=== PATIENT | female | born 1990 | race Caucasian/White ===

== ENCOUNTER → 2018-05-02 14:04 | Outpatient (CLI) | payer SELFPAY ==
[2018-05-02 14:25] LABS: Absolute Lymphocyte Count 2.14 X10^3/ul (0.83-4.51); Absolute Neutrophil Count 6.5 X10^3/uL (2.0-7.7); Basophil# 0.02 X10^3/uL; Basophil% 0.2 % (0-1); Eosinophils% 1.1 % (0-5); Hematocrit 37.4 % (37-47); Hemoglobin 13.1 g/dl (12.0-15.0); Lymphocyte # 2.14 X10^3/ul (4.0); Lymphocyte % 22.8 % (19-41); Mean Corpuscular Hgb 29.7 pg (27.0-32.0); Mean Corpuscular Volume 84.8 fL (81-99); Mean Platelet Vol. 9.9 fl (6.2-12.0); Monocyte# 0.62 X10^3/uL; Monocyte% 6.6 % (0-10); Neutrophil # 6.46 X10^3/uL (2.7-7.7); POSITIVE COUNT NO; POSITIVE DIFFERENTIAL NO; POSITIVE MORPHOLOGY NO; Platelet Count 274 K/mm3 (150-450); RBC Distribution Width CV 12.8 % (11.6-14.6); RBC Distribution Width SD 39.3 fl (35.1-43.9); Red Blood Count 4.41 M/mm3 (4.2-5.4); White Blood Count 9.4 K/mm3 (4.4-11.0)
[2018-05-02 14:44] LABS: Glucose Challenge Gest 1H 50g 117 mg/dL (70-140)
[2018-05-02 15:39] LABS: HIV - WCH Non-Reactive (Nonreactive); Rubella IgG 9.2 IU/mL
[2018-05-02 20:36] LABS: Chlamydia Trachomatis by PCR Negative (Negative); Neisserai gonorrhoeae by PCR Negative (Negative); Probe Check PASS; Sample Adequacy Control PASS; Specimen Processing Control PASS
[2018-05-03 10:56] LABS: HEPATITIS B SURFACE AG Negative (Negative)
[2018-05-05 10:39] LABS: HPV Reflexed? NOT INDICATED
[2018-05-06 01:58] LABS: Rapid Plasmin Reagin (RPR) NONREACTIVE (NONREACTIVE)
== END ==
PROVIDERS: Family Provider Nurse Practitioner Family; PCP Nurse Practitioner Family; Referring Provider Obstetrics & Gynecology; Visit Provider Obstetrics & Gynecology
DX: Z34.90 Encounter for supervision of normal pregnancy, unspecified, unspecified trimester (principal); Z12.4 Encounter for screening for malignant neoplasm of cervix
CPT/HCPCS: 36415; 82950; 85025; 86592; 86703; 86762; 86850; 86900; 87086; 87088; 87340; 87491; 87591; 87624; 88175; G0145

== ENCOUNTER → 2018-06-30 17:35 | Outpatient (CLI) | payer SELFPAY ==
[2018-06-30 13:52] VITALS: BMI 33.1
== END ==
PROVIDERS: Family Provider Nurse Practitioner Family; Referring Provider Nurse Practitioner Women's Health; Visit Provider Nurse Practitioner Women's Health
DX: Z34.90 Encounter for supervision of normal pregnancy, unspecified, unspecified trimester (principal)
CPT/HCPCS: 87086; 87088

== ENCOUNTER → 2018-07-27 14:08 | Outpatient (CLI) | payer SELFPAY ==
[2018-07-27 10:13] VITALS: BMI 33.1
[2018-07-27 14:59] LABS: Protein, Urine (Random) < 6.0 mg/dL (<11.9)
--- OUTSIDE RECORDS SUMMARY | 2018-09-28 14:41 | XMS RPT_ITS ---
:1990 Author Organization OHIP Support Name Relationship Address Phone AARON MEJIA Unavailable [phone] + [place] [phone] ROBERTO ANAND Unavailable Unavailable + [place] [address] UE Unavailable Unavailable Unavailable AARON MEJIA Unavailable [phone] + [place] [address] MEJIA ANAND Unavailable . + [place] [address] UE Unavailable Unavailable Unavailable AARON MEJIA Unavailable [phone] + [place] [address] MARBELLA MEJIANAS Unavailable [phone] + [place] [address] MEJIA, ANAND Unavailable Unavailable + UE Unavailable Unavailable Unavailable AARON MEJIA Unavailable [phone] + [place] [address] MEJIA, ANAND Unavailable . + ., [place] . UE Unavailable Unavailable Unavailable AARON MEJIA Unavailable [phone] + [place] [address] MEJIA, ANAND Unavailable . + ., [place] . UE Unavailable Unavailable Unavailable MARBELLA MEJIANAS Unavailable [phone] + [place] [address] ROBERTO ANAND Unavailable Unavailable + UE Unavailable Unavailable Unavailable . Unavailable Unavailable + [place] [address] AARON MEJIA Unavailable . + [place] [address] ROBERTO ANAND Unavailable . + [place] [address] . Unavailable Unavailable + [place] [address] AARON MEJIA Unavailable . + [place] [address] ANAND MEJIA Unavailable . + [place] [address] Care Team Providers Name Role Phone TIERNEY VALLEJO Attending Unavailable MARCANTHONY, VERNELL E Referring Unavailable MARCANTHONY, VERNELL E Primary Care Unavailable Jose Alfredo, Roxanna Attending Unavailable DOCTOR, OUT OF TOWN Referring Unavailable Jose Alfredo, Roxanna Attending Unavailable Courtney, Abbi Primary Care Unavailable [place], Roxanna Referring Unavailable Marcanthony, Vernell Attending Unavailable DOCTOR, OUT OF TOWN Referring Unavailable Marcanthony, Vernell Attending Unavailable DOCTOR, OUT OF TOWN Referring Unavailable Marcanthony, Vernell Attending Unavailable DOCTOR, OUT OF TOWN Referring Unavailable Marcanthony, Vernell Attending Unavailable Marcanthony, Vernell Referring Unavailable [place], Abbi Primary Care Unavailable Marcanthony, Vernell Attending Unavailable Marcanthony, Vernell Referring Unavailable Courtney, Abbi Primary Care Unavailable Marcanthony, Vernell Attending Unavailable DOCTOR, OUT OF TOWN Referring Unavailable PROBLEMS PROBLEMS DATE TYPE CONDITION / CODE ATTENDING STATUS SOURCE 07/27/2018 Unknown O16.9 - Unspecified Marcanthony, Active [place] maternal hypertension, [facility] unspecified trimester Hospital / O16.9(ICD-10) Repository 07/27/2018 Unknown Z34.80 - Encounter for Marcanthony, Active [place] supervision of other [facility] normal , Hospital unspecified trimester Repository / Z34.80(ICD-10) 07/27/2018 Unknown O34.219 - Maternal Marcanthony, Active [place] care for unspecified [facility] type scar from Hospital previous Repository delivery / O34.219(ICD-10) 07/27/2018 Unknown Z86.2 - Personal Marcanthony, Active [place] history of diseases of [facility] the blood and Hospital blood-forming organs Repository and certain disorders involving the immune mechanism / Z86.2(ICD-10) 07/27/2018 Unknown O99.89 - Other Marcanthony, Active [place] specified diseases and [facility] conditions Hospital complicating Repository , childbirth and the puerperium / O99.89(ICD-10) 07/27/2018 Unknown Z28.3 - Marcanthony, Active [place] Underimmunization [facility] status / Z28.3(ICD-10) Hospital Repository 07/27/2018 Unknown O23.41 - Unspecified Marcanthony, Active [place] infection of urinary [facility] tract in , Hospital first trimester / Repository O23.41(ICD-10) 07/27/2018 Unknown F41.9 - Anxiety Marcanthony, Active [place] disorder, unspecified [facility] / F41.9(ICD-10) Hospital Repository 07/27/2018 Unknown Z3A.20 - 20 weeks Marcanthony, Active [place] gestation of Vernell [facility] / Z3A.20(ICD-10) Hospital Repository 07/01/2018 Unknown Z34.90 - Encounter for [place], Active [place] supervision of normal [facility] , Hospital unspecified, Repository unspecified trimester / Z34.90(ICD-10) 06/30/2018 Unknown Z3A.17 - 17 weeks Jose Alfredo, Active [place] gestation of [facility] / Z3A.17(ICD-10) Hospital Repository 06/01/2018 Unknown Z3A.12 - 12 weeks Marcanthony, Active [place] gestation of Vernell [facility] / Z3A.12(ICD-10) Hospital Repository 05/02/2018 Unknown Z3A.08 - 8 weeks Marcanthony, Active [place] gestation of [facility] / Z3A.08(ICD-10) Hospital Repository PROCEDURES PROCEDURES No Procedure Records FoundRESULTS RESULTS PROTEIN+CREATININE Collected: Status: F Source: [place] PAGEURINE 07/27/2018 2:27 PM [facility] REPOSITORY TYPE CODE TESTS RESULT OUT OF RANGE REFERENCE UNITS LAB L501.1200 NO RANGE EST. mg/dL 13.30 Normal UR CREAT LAB L501.1930 <11.9 mg/dL < 6.0 Normal PROTEIN,UR. RAN. LAB L501.1940 0-200 mg/g CRE Test Normal not performed PROT:CRE RATIO Performed By: #### L501.0900 #### [facility] [address] [place], [address] BRIDGE ENGINEER OFFICE VISIT Observed: 07/27/2018 Status: F Source: [place] REPORT 10:46 AM [facility] REPOSITORY [facility] [address] [place] [address] OFFICE VISIT Date of Service: 07/27/18 MR#: [id number] Acct: [id number] Name: RAINA MEJIA Rep #: [id number] : 1990 Provider: Vernell Prado MD Age/Sex: 27/F Location: [facility] Status: Signed Intake Vital Signs07/27/18 Body Mass Index (BMI) 33.1 07/27/18 Height 5 ft 7 in 07/27/18 Weight: 216 lb 07/27/18 Body Mass Index (BMI) 33.8 07/27/18 Blood Pressure 140/72 H Intake Visit Reasons: OB Chief Complaint: est ob Chicken Fancier Required: No Is patient in pain?: No Allergies No Known Allergies Allergy (Verified 07/27/18 10:12) Medications fluvoxamine 100 mg tablet 100 mg PO QHS 11/11/17 [History Confirmed 07/27/18] vitamin #56-iron 35 mg and 5 mg-folic acid 1 mg-dha capsule 1 cap PO DAILY 05/02/18 [History Confirmed 07/27/18] nitrofurantoin monohydrate/macrocrystals 100 mg capsule 100 mg PO BID #14 cap 05/05/18 [Rx Confirmed 07/27/18] Last Menstral Period: 03/03/18 Zika: Zika virus screening: Negative : No PFSH PFSH Medical History Anxiety (Acute) Surgical History S/P (Resolved) Family History Grandmother Cancer Grandfather Heart disease Social History Smoking Status: Never smoker alcohol intake: never substance use type: does not use caffeine: Yes what type of physical activity do you participate in: walking frequency: 5-6 times per week seatbelt use: always do you feel safe at home: Yes additional social history: - [facility] [address] [employer] Patient is a stay 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 DateName GA/Weeks Outcome Route Bth WeighInfant GeLabor LgtAnesthesiDel LocatProvider FOB t n h a n HPI OB: Details: RAINA MEJIA is a 27 year old who presents for routine OB visit. OB Visit ELSY Calculator Estimated Delivery Date 12/08/18 Based on LMP (certain) 03/03/18 Current WG 20w 6d Number 1 Expected Delivery Route/Plan considering Specific Issue/Plans flu vaccine: declines tdap vaccine: [] rhogam: NA LARC form signed: [] labor support person: Aaron pain management: epidural cut cord/dad catch: : yes PP control planned: [] special requests: [] Initial Weight: 210 lb Date Weight BP Urine PrFHR FuHt Pres MoCTX DilationFetal StVisit NoProviderComments E ot v te GA G Effac lucose ed Visit Notes Visit Date: 07/27/18 no vb lof good fm no regular ctx Vernell Prado MD on 07/27/18 Visit Date: 06/30/18 No VB, LOF. Doing well Roxanna Veliz NP-Evon on 06/30/18 Visit Date: 06/01/18 no vb lof crmaping Vernell Prado MD on 06/01/18 ACOG First Trimester First Trimester: Discussed Diagnostics Diagnostics Labs Blood Type A POSITIVE 05/02/18 Antibody Screen NEGATIVE 05/02/18 Hct 37.4 % (37-47) 05/02/18 Hgb 13.1 g/dl (12.0-15.0) 05/02/18 Rubella IgG Antibody 9.2 IU/mL 05/02/18 RPR NONREACTIVE (NONREACTIVE) 05/02/18 Hep Bs Antigen Negative (Negative) 05/02/18 Chlam trachomat DNA PCR Negative (Negative) 05/02/18 N.gonorrhoeae DNA (PCR) Negative (Negative) 05/02/18 Glucose 1 Hr 50 gm 117 mg/dL (70-140) 05/02/18 Details: HIV: Urine Culture: Sequential Screen: NIPT Screen: Results [id number] Office Urine Glucose Negative Last Edit by Lorelei Sosa on 07/27/18 10:16 Office Urine Protein Negative Last Edit by Lorelei Sosa on 07/27/18 10:16 Assessment AND Plan Problems 1. History of hemorrhage Z86.2 uterine inversion 2. Urinary tract infection in mother during first trimester of O23.41 REPEAT URINE culture neg 3. Previous delivery affecting , antepartum O34.219 considering 4. Supervision of other normal , antepartum Z34.80 PRR ELSY 12/08/18 boy PC Denis Aaron 5. 20 weeks gestation of Z3A.20 genetic, carrier, and ntd screening declined. MFM Anatomy US normal. 6. Anxiety F41.9 fluvoxamine 7. Rubella non-immune status, antepartum O99.89; Z28.3 discussed rubella avoidance nd immunization Plan ACOG trimester education reviewed and updated. see problem list details for updated plan management information and see below for orders placed at this visit. [place] appropriate handout given. Orders Orders: Coding Level of Care Code OB Routine Diagnoses History of hemorrhage Z86.2 Urinary tract infection in mother during first trimester of O23.41 Trimester: first trimester Previous delivery affecting , antepartum O34.219 Supervision of other normal , antepartum Z34.80 Normal : other normal 20 weeks gestation of Z3A.20 Weeks of gestation: 20 weeks Anxiety F41.9 Rubella non-immune status, antepartum O99.89; Z28.3 07/27/18 1046 <Electronically signed by Vernell Prado MD> Date Vernell Prado MD Cosigner Signature: Date (if applicable) CC: Observed: 06/30/2018 Status: F Source: [place] TADEO, URINE 5:36 PM [facility] REPOSITORY Urine Culture ORGANISM 1: Mixed Gram Positive Organisms Randolph Count >100,000 MIX CULTURE Mixed contaminants. Submit a new specimen if indicated. Performed By: #### M100.0650 #### [facility] [address] [place], [address] BRIDGE ENGINEER OFFICE VISIT Observed: 06/30/2018 Status: F Source: [place] REPORT 1:51 PM [facility] REPOSITORY [facility] [address] [place] [address] OFFICE VISIT Date of Service: 06/30/18 MR#: [id number] Acct: [id number] Name: RAINA MEJIA Rep #: [id number] : 1990 Provider: FREDDY Veliz Age/Sex: 27/F Location: [facility] Status: Signed Intake Vital Signs06/30/18 Body Mass Index (BMI) 33.1 06/30/18 Height 5 ft 7 in 06/30/18 Weight: 212 lb 4 oz 06/30/18 Body Mass Index (BMI) 33.2 06/30/18 Blood Pressure 122/84 H Intake Visit Reasons: OB Chief Complaint: Est OB Accompanied by: Self Is patient in pain?: No Allergies No Known Allergies Allergy (Verified 06/30/18 13:33) Medications fluvoxamine 100 mg tablet 100 mg PO QHS 11/11/17 [History Confirmed 06/30/18] vitamin #56-iron 35 mg and 5 mg-folic acid 1 mg-dha capsule 1 cap PO DAILY 05/02/18 [History Confirmed 06/30/18] nitrofurantoin monohydrate/macrocrystals 100 mg capsule 100 mg PO BID #14 cap 05/05/18 [Rx Confirmed 06/30/18] Last Menstral Period: 03/03/18 Zika: Zika virus screening: Negative : No PFSH PFSH Medical History Anxiety (Acute) Surgical History S/P (Resolved) Family History Grandmother Cancer Grandfather Heart disease Social History Smoking Status: Never smoker alcohol intake: never substance use type: does not use caffeine: Yes what type of physical activity do you participate in: walking frequency: 5-6 times per week seatbelt use: always do you feel safe at home: Yes additional [facility]: [facility] is a stay 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 DateName GA/Weeks Outcome Route Bth WeighInfant GeLabor LgtAnesthesiDel LocatProvider FOB t n h a n HPI OB: Details: RAINA MEJIA is a 27 year old who presents for routine OB visit. OB Visit ELSY Calculator Estimated Delivery Date 12/08/18 Based on LMP (certain) 03/03/18 Current WG 17w 0d Number 1 Expected Delivery Route/Plan considering Specific Issue/Plans flu vaccine: declines tdap vaccine: [] rhogam: NA LARC form signed: [] labor support person: Aaron pain management: epidural cut cord/dad catch: : yes PP control planned: [] special requests: [] Initial Weight: Not Recorded Date Weight BP Urine PFHR FuHt Pres MCTX DilatioFetal SVisit NProvideComment rot ov n t ote r s EGA Ef Gluco faced se 06/01/1211 lb 110/76 155 no vb l 8 8 oz of crma 12 ping w 6d Visit Notes Visit Date: 06/30/18 No VB, LOF. Doing well Roxanna Veliz NP-Evon on 06/30/18 Visit Date: 06/01/18 no vb lof crmaping Vernell Prado MD on 06/01/18 ACOG First Trimester First Trimester: Discussed Diagnostics Diagnostics Labs Blood Type A POSITIVE 05/02/18 Antibody Screen NEGATIVE 05/02/18 Hct 37.4 % (37-47) 05/02/18 Hgb 13.1 g/dl (12.0-15.0) 05/02/18 Rubella IgG Antibody 9.2 IU/mL 05/02/18 RPR NONREACTIVE (NONREACTIVE) 05/02/18 Hep Bs Antigen Negative (Negative) 05/02/18 Chlam trachomat DNA PCR Negative (Negative) 05/02/18 N.gonorrhoeae DNA (PCR) Negative (Negative) 05/02/18 Glucose 1 Hr 50 gm 117 mg/dL (70-140) 05/02/18 Details: HIV: Urine Culture: Sequential Screen: NIPT Screen: Assessment AND Plan Problems 1. Supervision of other normal , antepartum Z34.80 PRR ELSY 12/08/18 PC Denis Aaron 2. Previous delivery affecting , antepartum O34.219 considering 3. 17 weeks gestation of Z3A.17 genetic, carrier, and ntd screening declined. 4. History of hemorrhage Z86.2 uterine inversion 5. Rubella non-immune status, antepartum O99.89; Z28.3 discussed rubella avoidance nd immunization 6. Urinary tract infection in mother during first trimester of O23.41 NEEDS REPEAT URINE CULUTRE AT NEXT VISIT 7. Anxiety F41.9 fluvoxamine Plan Orders placed: none Anatomy US with MFM scheduled Reviewed of labor precautions, movement/kick counts ACOG trimester education reviewed and updated See problem list details for updated plan of care Gestational age appropriate handout given RTO: 4 weeks Coding Level of Care Code OB Routine Diagnoses Supervision of other normal , antepartum Z34.80 Normal : other normal Previous delivery affecting , antepartum O34.219 17 weeks gestation of Z3A.17 Weeks of gestation: 17 weeks History of hemorrhage Z86.2 Rubella non-immune status, antepartum O99.89; Z28.3 Urinary tract infection in mother during first trimester of O23.41 Trimester: first trimester Anxiety F41.9 06/30/18 1351 <Electronically signed by Roxanna SELLERS> Date Roxanna SELLERS Cosigner Signature: Date (if applicable) CC: BRIDGE ENGINEER OFFICE VISIT Observed: 06/01/2018 Status: F Source: [place] REPORT 10:53 AM [facility] Women's [facility] [address] [place] [address] OFFICE VISIT Date of Service: 06/01/18 MR#: [id number] Acct: [id number] Name: RAINA MEJIA Rep #: [id number] : 1990 Provider: Vernell Prado MD Age/Sex: 27/F Location[facility] Status: Signed Intake Vital Signs06/01/18 Height 5 ft 7 in 06/01/18 Weight: 211 lb 8 oz 06/01/18 Body Mass Index (BMI) 33.1 06/01/18 Blood Pressure 110/76 Intake Visit Reasons: 12 week ob Chief Complaint: est ob Chicken Fancier Required: No Is patient in pain?: No Allergies No Known Allergies Allergy (Verified 06/01/18 10:32) Medications fluvoxamine 100 mg tablet 100 mg PO QHS 11/11/17 [History Confirmed 06/01/18] vitamin #56-iron 35 mg and 5 mg-folic acid 1 mg-dha capsule 1 cap PO DAILY 05/02/18 [History Confirmed 06/01/18] nitrofurantoin monohydrate/macrocrystals 100 mg capsule 100 mg PO BID #14 cap 05/05/18 [Rx Confirmed 06/01/18] Last Menstral Period: 03/03/18 Zika: Zika virus screening: Negative : No PFSH PFSH Medical History Anxiety (Acute) Surgical History S/P (Resolved) Family History Grandmother Cancer Grandfather Heart disease Social History Smoking Status: Never smoker alcohol intake: never substance use type: does not use caffeine: Yes what type of physical activity do you participate in: walking frequency: 5-6 times per week seatbelt use: always do you feel safe at home: Yes additional social history: - [facility] [address] [employer] Patient is a stay 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 DateName GA/Weeks Outcome Route Bth WeighInfant GeLabor LgtAnesthesiDel LocatProvider FOB t n h a n HPI 12 week ob: Details: RAINA MEJIA is a 27 year old who presents for routine OB visit. OB Visit ELSY Calculator Estimated Delivery Date 12/08/18 Based on LMP (certain) 03/03/18 Current WG 12w 6d Number 1 Expected Delivery Route/Plan considering Initial Weight: Not Recorded Date Weight BP Urine PrFHR FuHt Pres MoCTX DilationFetal StVisit NoProviderComments E ot v te GA G Effac lucose ed Visit Notes Visit Date: 06/01/18 no vb lof crmaping Vernell Prado MD on 06/01/18 ACOG First Trimester First Trimester: Discussed Diagnostics Diagnostics Labs Blood Type A POSITIVE 05/02/18 Antibody Screen NEGATIVE 05/02/18 Hct 37.4 % (37-47) 05/02/18 Hgb 13.1 g/dl (12.0-15.0) 05/02/18 Rubella IgG Antibody 9.2 IU/mL 05/02/18 RPR NONREACTIVE (NONREACTIVE) 05/02/18 Hep Bs Antigen Negative (Negative) 05/02/18 Chlam trachomat DNA PCR Negative (Negative) 05/02/18 N.gonorrhoeae DNA (PCR) Negative (Negative) 05/02/18 Glucose 1 Hr 50 gm 117 mg/dL (70-140) 05/02/18 Details: HIV: Urine Culture: Sequential Screen: NIPT Screen: Assessment AND Plan Problems 1. History of hemorrhage Z86.2 uterine inversion 2. Previous delivery affecting , antepartum O34.219 considering 3. Supervision of other normal , antepartum Z34.80 PRR ELSY 12/08/18 MALCOM Barrios Aaron 4. 12 weeks gestation of Z3A.12 genetic, carrier, and ntd screening declined. 5. Anxiety F41.9 fluvoxamine 6. Urinary tract infection in mother during first trimester of O23.41 needs repeat culture at next visit 7. Rubella non-immune status, antepartum O99.89; Z28.3 discussed rubella avoidance nd immunization Plan ACOG trimester education reviewed and updated. see problem list details for updated plan management information and see below for orders placed at this visit. [place] appropriate handout given. Orders Orders: Coding Level of Care Code OB Routine Diagnoses History of hemorrhage Z86.2 Previous delivery affecting , antepartum O34.219 Supervision of other normal , antepartum Z34.80 Normal : other normal 12 weeks gestation of Z3A.12 Weeks of gestation: 12 weeks Anxiety F41.9 Urinary tract infection in mother during first trimester of O23.41 Trimester: first trimester Rubella non-immune status, antepartum O99.89; Z28.3 06/01/18 1053 <Electronically signed by Vernell Prado MD> Date Vernell Prado MD Cosigner Signature: Date (if applicable) CC: CBC W/DIFF, AUTOMATED Collected: 05/02/2018 Status: F Source: [place] 2:12 PM [facility] REPOSITORY TYPE CODE TESTS RESULT OUT OF RANGE REFERENCE UNITS LAB L100.1000 4.4-11.0 K/mm3 Normal WBC 9.4 LAB L100.1200 4.2-5.4 M/mm3 Normal RBC 4.41 LAB L100.1300 12.0-15.0 g/dl Normal HGB 13.1 LAB L100.1400 37-47 % Normal HCT 37.4 LAB L100.1500 81-99 fL Normal MCV 84.8 LAB L100.1600 27.0-32.0 pg Normal MCH 29.7 LAB L100.1700 32-36 g/gl Normal MCHC 35.0 LAB L100.1810 11.6-14.6 % Normal RDW CV 12.8 LAB L100.1820 35.1-43.9 fl Normal RDW SD 39.3 LAB L100.1900 150-450 K/mm3 Normal PLT 274 LAB L100.2000 6.2-12.0 fl Normal MPV 9.9 LAB L100.2100 47-70 % Normal NEUT% 69.0 LAB L100.2200 19-41 % Normal LY% 22.8 LAB L100.2300 0-10 % Normal MONO% 6.6 LAB L100.2400 0-5 % Normal EO% 1.1 LAB L100.2500 0-1 % Normal BASO% 0.2 LAB L100.2550 0.0-0.9 % Normal IM GRAN % 0.300 Result Comment: IG% - Immature Granulocytes (promyelocytes, myelocytes and metamyelocytes) > 1% indicates that a LEFT SHIFT is Present. LAB L100.2620 2.0-7.7 X10 3/uL Normal Absolute Neut 6.5 LAB L100.2720 0.83-4.51 X10 3/ul Normal Absolute Lymph 2.14 Performed By: #### L100.0100 #### [facility] [address] [place], [address] GLUCOSE CHALLENGE GEST Collected: 05/02/2018 Status: F Source: [place] 1H 50G 2:12 PM [facility] REPOSITORY TYPE CODE TESTS RESULT OUT OF RANGE REFERENCE UNITS LAB L501.0250 70-140 mg/dL Normal GLU GEST 117 50g 1H Performed By: #### L501.0250 #### [facility] [address] [place], [address] TYPE AND SCREEN Collected: 05/02/2018 Status: F Source: [place] 2:12 PM [facility] REPOSITORY Order Comment: Reason for Type AND Screen/Red Cells: TYPE CODE TESTS RESULT OUT OF RANGE REFERENCE UNITS LAB B10.0800 A Normal BLOOD TYPE GEL POSITIVE LAB B100.4000 Normal Antibody NEGATIVE Screen Performed By: #### B101.7450 #### [facility] [address] [place], [address] RUBELLA IGG Collected: 05/02/2018 Status: F Source: [place] 2:12 PM [facility] REPOSITORY TYPE CODE TESTS RESULT OUT OF RANGE REFERENCE UNITS LAB L509.4000 IU/mL Normal Rubella IgG 9.2 Result Comment: Antibody results Interpretation of Immune Status < 5 IU/ml Presumed Non-immune 5 - < 10 IU/ml Equivocal > or = 10 IU/ml Presumed Immune Performed By: #### L509.4000, L3890.6005 #### [facility] [address] [place], [address] HIV - [facility] Collected: 05/02/2018 Status: F Source: [place] 2:12 PM [facility] REPOSITORY TYPE CODE TESTS RESULT OUT OF RANGE REFERENCE UNITS LAB L3890.6005 Nonreactive Normal HIV - [facility] Non-Reactive Performed By: #### L509.4000, L3890.6005 #### [facility] [address] [place], [address] HEPATITIS B SURFACE Collected: 05/02/2018 Status: F Source: [place] AG 2:12 PM [facility] REPOSITORY TYPE CODE TESTS RESULT OUT OF RANGE REFERENCE UNITS LAB L3100.0400 Negative Normal HB Negative SURF AG Result Comment: Performed at: - [facility] [id number] [employer] Operator: Esequiel Franco PhD, Phone: [phone] Performed By: #### L3100.0390 #### [facility] (refer to report for specific site) refer to report for address and phone number RAPID PLASMIN REAGIN Collected: 05/02/2018 Status: F Source: [place] (RPR) 2:12 PM [facility] REPOSITORY TYPE CODE TESTS RESULT OUT OF REFERENCE UNITS RANGE LAB L700.5000 NONREACTIVE NONREACTIVE Normal RPR Performed By: #### L700.5000 #### [facility] [address] [place], [place], [address] BRIDGE ENGINEER OFFICE VISIT Observed: 05/02/2018 Status: F Source: [place] REPORT 1:56 PM [facility] REPOSITORY [facility] [address] [place] [address] OFFICE VISIT Date of Service: 05/02/18 MR#: [id number] Acct: [id number] Name: RAINA MEJIA Rep #: [id number] : 1990 Provider: Vernell Prado MD Age/Sex: 27/F Location: [facility] Status: Signed Intake Vital Signs05/02/18 Height 5 ft 7 in 05/02/18 Weight: 209 lb 05/02/18 Body Mass Index (BMI) 32.7 05/02/18 Blood Pressure 122/80 H Intake Visit Reasons: NOB-LMP-03/03/18 Chief Complaint: NEW OB Chicken Fancier Required: No Is patient in pain?: No Allergies No Known Allergies Allergy (Verified 05/02/18 13:07) Medications fluvoxamine 100 mg tablet 100 mg PO QHS 11/11/17 [History Confirmed 11/11/17] vitamin #56-iron 35 mg and 5 mg-folic acid 1 mg-dha capsule 1 cap PO DAILY 05/02/18 [History Confirmed 05/02/18] Last Menstral Period: 03/03/18 Zika: Zika virus screening: Negative : No PFSH PFSH Medical History Anxiety (Acute) Surgical History S/P (Resolved) Family History Grandmother Cancer Grandfather Heart disease Social History Smoking Status: Never smoker alcohol intake: never substance use type: does not use caffeine: Yes what type of physical activity do you participate in: walking frequency: 5-6 times per week seatbelt use: always do you feel safe at home: Yes additional social history: - [facility] Patient is a stay 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 DateName GA/Weeks Outcome Route Bth WeighInfant GeLabor LgtAnesthesiDel LocatProvider FOB t n h a n HPI NOB-LMP-03/03/18: Details: RAINA MEJIA is a 27 year old who presents for New OB visit. OB Visit Comments: Limited transvaginal ultrasound performed to confirm EDC and viability. CRL is 1.8 mm measuring 8w5d which is consistent with LMP. FHTs 170. no gross abnormalities noted. Menstrual History Last Menstral Period: 03/03/18 Reported LMP: definite Normal amount/duration: Yes On hormonal BC at conception: No Antepartum Record Genetic Screening: Congenital Heart Defect: Other, Neural Tube Defect: Other, Hemoglobinopathy Or Carrier: Other, Cystic Fibrosis: Other, Chromosome Abnormality: Other, Edmund-Sachs: Other, Hemophilia: Other, Intellectual Disability/Autism: Other, Recurrent Loss/Stillbirth: Other, Other Structural Defect: Other, Other Genetic Disease: Other, Maternal Metabolic Disorder: Other Infection History: Live with someone with TB or Exposed to TB: No, Patient or Partner has history of Genital Herpes: No, Rash or Viral illness since last mentrual period: No, Prior GBS-Infected child: No, History of STD: No, HIV Infection: No, History of Hepatitis: No, Recent travel outside of [place]: No, Concern for Hep exposure: No, Varicella immune: Yes Medical History Medical History: Positive: Psychiatric (prozac), History of blood transfusions (with hemorrhage PP), Seat Maker surgery, Operations/hospitalizations, Negative: Diabetes, Hypertension, Heart disease, Auto-immune disorder, Kidney disease/UTI, Neurologic/epilepsy, Depression/ depression, Hepatitis/liver disease, Varicosities/phlebitis, Thyroid dysfunction, Trauma/domestic violence, D (Rh) Sensitized, Pulmonary (e.g.,TB,Asthma), Seasonal allergies, Drug/latex allergies/reactions, Breast, Anesthetic complications, History of abnormal pap, Uterine anomaly/hay, Infertility, Anti-retroviral treatment, Relevant family history, Other ACOG First Trimester First Trimester: Discussed ROS Const Denies fever(s), Reports system reviewed and no additional complaints, except as docu, Reports fatigue Eyes Reports system reviewed and no additional complaints, except as docu ENT Reports system reviewed and no additional complaints, except as docu Card Denies chest pain, Denies shortness of breath Resp Reports system reviewed and no additional complaints, except as docu, Denies shortness of breath, Denies cough GI Reports nausea, Denies abdominal pain Reports system reviewed and no additional complaints, except as docu Musc Reports system reviewed and no additional complaints, except as docu Skin/Breast Reports system reviewed and no additional complaints, except as docu Neuro Yes system reviewed and no additional complaints, except as docu Psych Reports system reviewed and no additional complaints, except as docu Endo Reports fatigue, Reports system reviewed and no additional complaints, except as docu Exam Const General: healthy appearing, comfortable, no acute distress Orientation: alert [facility] Head: normal to inspection, atraumatic, normocephalic Ears: external ears normal, hearing grossly normal bilaterally Nose: nares normal, external nose normal Mouth: oral mucosae normal Teeth and gingiva: dentition normal Eyes General: appearance normal, both eyes and all related structures Neck Neck: no lymphadenopathy, supple, normal visual inspection Thyroid: thyroid normal Chest Chest palpation AND inspection: normal inspection of the chest Breast inspection: normal inspection of the breasts, normal inspection of the axillae Breast palpation: normal palpation of the breasts, normal palpation of the axillae Resp Effort AND Inspection: normal respiratory effort GI Inspection: normal to inspection Palpation: soft, no hepatosplenomegaly General: bladder normal to palpation External Female Exam: normal external appearance, normal appearance of the urethra Urethra: normal appearance of the urethra Speculum Exam - Vagina: normal appearance of the vagina, normal vaginal discharge Speculum Exam - Cervix: normal appearance of the cervix Bimanual Exam- Vagina AND Uterus: bladder normal to palpation, normal bimanual exam, uterus non-tender, other Bimanual Exam- Adnexa, other: adnexae non-tender Skin General: no rashes or lesions noted Neuro Motor: muscle tone normal throughout, no movement abnormalities noted Extrem General: normal to inspection, full ROM Assessment AND Plan Problems 1. History of hemorrhage Z86.2 uterine inversion 2. Previous delivery affecting , antepartum O34.219 considering 3. 8 weeks gestation of Z3A.08 genetic, carrier, and ntd screening declined. 4. Supervision of other normal , antepartum Z34.80 ELSY PC Denis Aaron 5. Anxiety F41.9 fluvoxamine Plan Patient oriented to practice and discussed care expectations and screenings. ACOG book offered to patient. Discussed routine and specially indicated labs if needed- patient consents to testing. see problem list details for plan information. Optional screening including carrier screenings, neural tube defect screening, sequential screening, and NIPT screening offered to patient and patient chose: declines Orders Orders: Supplemental Info ACOG book given and patient encouraged to read about nutrition, exercise, weight gain, and food avoidance in . Coding Level of Care Code OB Routine Diagnoses History of hemorrhage Z86.2 Previous delivery affecting , antepartum O34.219 8 weeks gestation of Z3A.08 Weeks of gestation: 8 weeks Supervision of other normal , antepartum Z34.80 Normal : other normal Anxiety F41.9 05/02/18 1356 <Electronically signed by Vernell Prado MD> Date Vernell Prado MD Cosigner Signature: Date (if applicable) CC: CT/NG [facility] BY PCR Collected: 05/02/2018 Status: F Source: [place] 1:00 PM [facility] REPOSITORY TYPE CODE TESTS RESULT OUT OF RANGE REFERENCE UNITS LAB L8200.2100 Negative Normal Chlam Negative Trac PCR LAB L8200.2200 Negative Normal NG by Negative PCR Performed By: #### L8200.2000 #### [facility] [address] [place], [address] Observed: 05/02/2018 Status: F Source: [place] CULTURE, URINE 1:00 PM [facility] REPOSITORY Urine Culture Gram positive diane suggestive of a diptheroid. Below infection level. ORGANISM 1: Gram positive diane Randolph Count <1000 Performed By: #### M100.0650 #### [facility] [address] [place], [address] PAP I-G W/RFX Collected: 05/02/2018 Status: F Source: [place] HRHPV-APTIMA 1:00 PM [facility] REPOSITORY Order Comment: CYTOLOGY INFORMATION: - CLINICAL INFORMATION: NEW OB - DATE LMP/MENOPAUSE: - COLLECTION VIAL: Thin Prep Vial - CAN WORKER SOURCE: CERVICAL - COLLECTION TECHNIQUE: BRUSH/SPATULA Specimen Comment: [id number] Specimen Comment: Source.............Labia/Vulva Specimen Comment: Dates / Results....NEW OB Specimen Comment: Other..............Other Specimen Comment: No. of containers..01 ThinPrep Vial TYPE CODE TESTS RESULT OUT OF RANGE REFERENCE UNITS LAB L7400.0800 . Normal DIAGN Comment Result Comment: NEGATIVE FOR INTRAEPITHELIAL LESION AND MALIGNANCY. LAB L7400.0900 . Normal ADEQ Comment Result Comment: Satisfactory for evaluation. No endocervical component is identified. LAB L7400.1400 . Normal PERFORM Comment Result Comment: Yamini Hernandez, Shake Loader (ASCP) LAB L7400.2575 . Normal TEST METHOD Comment Result Comment: This liquid based ThinPrep(R) pap test was screened with the use of an image guided system. LAB L7400.2600 . Normal . COMM LAB L7400.2700 . Normal PAPSMR Comment Result Comment: The Pap smear is a screening test designed to aid in the detection of premalignant and malignant conditions of the uterine cervix. It is not a diagnostic procedure and should not be used as the sole means of detecting cervical cancer. Both false-positive and false-negative reports do occur. LAB L7400.2800 . Normal HPV RFLX Comment Result Comment: The HPV DNA reflex criteria were not met with this specimen result therefore, no HPV testing was performed. Performed at: [facility] [id number] [employer] [place] [employer] Operator: Angelica Cano MD, Phone: [phone] Performed By: #### L7400.0353 #### [facility] (refer to report for specific site) refer to report for address and phone number BRIDGE ENGINEER OFFICE VISIT Observed: 11/14/2017 Status: F Source: [place] REPORT 5:30 PM [facility] [address] [place] [address] OFFICE VISIT Date of Service: 11/11/17 MR#: [id number] Acct: [id number] Name: RAINA MEJIA Rep #: [id number] : 1990 Provider: Vernell Prado MD Age/Sex: 27/F Location: [facility] Status: Signed Intake Vital Signs11/11/17 Height 5 ft 3 in 11/11/17 Weight: 202 lb 2 oz 11/11/17 Body Mass Index (BMI) 35.8 11/11/17 Blood Pressure 118/84 Intake Visit Reasons: Fertility Discussion, Previous High Risk Preg Chicken Fancier Required: No Is patient in pain?: No Allergies No Known Allergies Allergy (Verified 11/11/17 11:34) Medications fluvoxamine 100 mg tablet 100 mg PO QHS 11/11/17 [History Confirmed 11/11/17] Is last menstrual period known: Yes Last Menstral Period: 10/30/17 Post menopausal: No Patient : No : No [facility] Medical History Anxiety (Acute) Surgical History S/P (Resolved) Family History Grandmother Cancer Grandfather Heart disease Social History Smoking Status: Never smoker alcohol intake: never substance use type: does not use caffeine: Yes what type of physical activity do you participate in: walking frequency: 5-6 times per week seatbelt use: always do you feel safe at home: Yes additional social history: - [facility]- [facility] Patient is a stay at home mom HPI Fertility Discussion, Previous High Risk Preg: Details: RAINA MEJIA is a 27 year old who presents for preconception counseling. she has a hisotry of previous c sectin for failture to progress and then had a hemorrhage with possibly a placenta acreata. she delivered at [place]. she is wnating to know her risk for recurrence and if it's safe to become . Female Reproductive History Last Menstral Period: 10/30/17 Cycle Length: 21-35 Questions: Metorrhagia: No, Sexually active: Yes, Dyspareunia: No Pregancy History 1 Elective abortions Hx Para 1 Spontaneous abortions Past Pregnancies Del. DateName GA/Weeks Outcome Route Bth WeighInfant GeLabor LgtAnesthesiDel LocatProvider FOB t n h a n ROS Const Constitutional: Denies poor appetite, headache(s), fever(s), increased appetite, weight gain, weight loss or fatigue ENT ENT: Denies dry mouth GI GI: Reports as per HPI; denies vomiting, nausea, abdominal pain or constipation : Reports as per HPI; denies difficulty urinating, blood in urine, pelvic pain, urinary frequency, urinary incontinence, urinary hesitancy, urinary urgency, vaginal discharge, vaginal dryness, vaginal odor, vaginal itching, other, painful urination or nipple discharge Skin Skin/Breast: Denies hair loss, change in hair, dry skin, breast pain, breast skin changes, breast lump or nipple discharge Exam Const General: cooperative, healthy appearing, comfortable, no acute distress, well developed Nutritional Appearance: average body habitus Orientation: alert HEN[facility] Head: normal to inspection, normocephalic Ears: hearing grossly normal bilaterally, external ears normal Nose: external nose normal, nares normal Face and sinus: normal facial exam Neck Neck: normal visual inspection, trachea midline, no lymphadenopathy Thyroid: thyroid normal Resp Effort AND Inspection: normal respiratory effort Musc Other: gross motor intact no deficits, full bilateral strength Skin General: no rashes or lesions noted Neuro Motor: muscle tone normal throughout Assessment AND Plan Problems 1. Pre-conception counseling Z Plan counseling provided for preconception. fu with next . obtain delivery records Coding Level of Care Code Off vis,new,level 3 Diagnoses Pre-conception counseling Z31.11/14/17 1730 <Electronically signed by Vernell Prado MD> Date Vernell Prado MD Cosigner Signature: Date (if applicable) CC: ALLERGIES ALLERGIES DATE TYPE / CODE NAME / CODE REACTION SEVERITY SOURCE 07/27/2018 Drug No Known Unknown [facility] Allergy/4160 Allergies/F00 Hospital 87925(SNOMED [id number](RXNOR Repository CT) M) ENCOUNTERS ENCOUNTERS ADMIT/DISCHARGE ACCOUNT ADMITTING ENCOUNTER LOCATION SOURCE NUMBER CLASS 07/27/2018 [id number] [facility] ing:LABSPEC Repository 07/27/2018/07/27/19 [id number] Ambulatory BMSBuilding:[facility] [place] [facility] Repository 07/18/2018 [id number] Ambulatory Building:[facility] Repository 06/30/2018 [id number] Ambulatory [facility] ing:LABSPEC Repository 06/30/2018/06/30/20 [id number] Ambulatory BMSBuilding:[facility] [place] [address] [facility] Repository 06/01/2018/06/01/20 [id number] Ambulatory BMSBuilding:[facility] [place] [facility] Repository 05/02/2018 [id number] Ambulatory [facility] ing:PAVLAB Repository 05/02/2018/05/02/20 [id number] Ambulatory BMSBuilding:[facility] [place] [facility] Repository 11/11/2017/11/12/19 [id number] Ambulatory BMSBuilding:[facility] [place] [facility] Repository PAYERS PAYERS ENCOUNTER GUARANTOR PAYER SUBSCRIBER SOURCE 07/27/2018 RAINA [facility] NOT GIVENUNK [place] [id number] CR Insurance:SELF PAY [place] [address]Tel: [phone] Number: Effective Repository [phone] () Date:2018-07-27 07/27/2018 RAINA [facility] NOT GIVENUNK [place] [id number] CR Insurance:SELF PAY [place] [address]Tel: [phone]) Number: Effective Repository [phone] () Date:2018-07-27 06/30/2018 RAINA [facility] NOT GIVENUNK [place] [id number] CR Insurance:SELF PAY [place] [address]Tel: [phone] Number: Effective Repository [phone] () Date:2018-06-30 06/30/2018 RAINA S Primary NOT GIVENUNK [place] [id number] CR Insurance:SELF PAY [place] [address]Tel: [phone]) Number: Effective Repository [phone] () Date:2018-06-30 06/01/2018 RAINA [facility] NOT GIVENUNK [place] [id number] CR Insurance:SELF PAY [address] [address]Knr: [phone] Number: Effective Repository [phone] (HP) Date:2018-06-01 05/02/2018 RAINA S Primary NOT GIVENUNK [place] [id number] CR Insurance:SELF PAY [place] [address]Tel: [phone]) Number: Effective Repository [phone] () Date:2018-05-02 05/02/2018 RAINA Primary NOT GIVENUNK [place] [id number] Insurance:SELF PAY [address] Number: Effective Repository [phone]: [phone] Date:2018-05-02 [phone] (HP) 11/11/2017 RAINA Primary NOT GIVENGRACE [id number] Insurance:SELF PAY [address] Number: Effective Repository [phone]: [phone]) Date:2017-11-11 [phone] (HP)
== END ==
PROVIDERS: Family Provider Nurse Practitioner Family; Referring Provider Obstetrics & Gynecology; Visit Provider Obstetrics & Gynecology
DX: O16.9 Unspecified maternal hypertension, unspecified trimester (principal)
CPT/HCPCS: 82570; 84156

== ENCOUNTER → 2018-08-24 14:17 | Outpatient (CLI) | payer SELFPAY ==
[2018-08-24 13:16] VITALS: BMI 34.0
[2018-08-24 14:44] LABS: Absolute Lymphocyte Count 1.83 X10^3/ul (0.83-4.51); Absolute Neutrophil Count 6.5 X10^3/uL (2.0-7.7); Basophil# 0.01 X10^3/uL; Basophil% 0.1 % (0-1); Eosinophil# 0.08 X10^3/uL; Eosinophils% 0.9 % (0-5); Hematocrit 37.1 % (37-47); Lymphocyte # 1.83 X10^3/ul (4.0); Lymphocyte % 20.2 % (19-41); Mean Corp Hgb Conc 32.3 g/gl (32-36); Mean Corpuscular Hgb 28.8 pg (27.0-32.0); Mean Corpuscular Volume 89.2 fL (81-99); Mean Platelet Vol. 9.5 fl (6.2-12.0); Monocyte# 0.55 X10^3/uL; Monocyte% 6.1 % (0-10); Neutrophil # 6.48 X10^3/uL (2.7-7.7); Neutrophil % 71.3 % (47-70); Platelet Count 230 K/mm3 (150-450); RBC Distribution Width CV 13.6 % (11.6-14.6); RBC Distribution Width SD 44.3 fl (35.1-43.9); Red Blood Count 4.16 M/mm3 (4.2-5.4); White Blood Count 9.1 K/mm3 (4.4-11.0)
[2018-08-24 14:45] LABS: POSITIVE COUNT NO; POSITIVE DIFFERENTIAL NO; POSITIVE MORPHOLOGY NO
[2018-08-24 15:14] LABS: ALB/GLOB Ratio 0.7 RATIO (0.9-2.4); AST(SGOT) 13 U/L (15-37); Alanine Aminotransfer ALT/SGPT 19 U/L (13-56); Albumin, Serum 3.1 g/dL (3.2-5.0); Alkaline Phosphatase 48 U/L (45-117); Anion Gap 9 (5-15); BUN 8 mg/dL (7-18); BUN/Creat Ratio 15.9 RATIO (10-20); Calcium,Total 8.8 mg/dL (8.5-10.1); Chloride 104 mmol/L (98-107); EST Glomerular Filtration Rate 157 mL/min (>60); Est Glom Filt Rate - Afr Amer 190 mL/min (>60); Globulin 4.3 g/dL (2.2-4.2); Glucose 89 mg/dL (74-106); Potassium 3.9 mmol/L (3.5-5.1); Protein, Total 7.4 g/dL (6.4-8.2); Sodium Level 137 mmol/L (136-145)
== END ==
PROVIDERS: Visit Provider Obstetrics & Gynecology
DX: O16.9 Unspecified maternal hypertension, unspecified trimester (principal); Z3A.00 Weeks of gestation of pregnancy not specified
CPT/HCPCS: 36415; 80053; 85025

== ENCOUNTER → 2018-09-14 15:35 | Outpatient (CLI) | payer SELFPAY ==
[2018-09-14 15:14] VITALS: BMI 34.0
[2018-09-14 16:48] LABS: Absolute Lymphocyte Count 1.58 X10^3/ul (0.83-4.51); Absolute Neutrophil Count 4.5 X10^3/uL (2.0-7.7); Basophil# 0.01 X10^3/uL; Basophil% 0.2 % (0-1); Eosinophil# 0.02 X10^3/uL; Eosinophils% 0.3 % (0-5); Lymphocyte # 1.58 X10^3/ul (4.0); Lymphocyte % 23.7 % (19-41); Mean Corp Hgb Conc 33.3 g/gl (32-36); Mean Corpuscular Hgb 29.7 pg (27.0-32.0); Mean Corpuscular Volume 89.1 fL (81-99); Mean Platelet Vol. 9.9 fl (6.2-12.0); Monocyte% 7.5 % (0-10); Neutrophil # 4.47 X10^3/uL (2.7-7.7); Neutrophil % 67.1 % (47-70); POSITIVE COUNT NO; POSITIVE DIFFERENTIAL NO; POSITIVE MORPHOLOGY NO; Platelet Count 211 K/mm3 (150-450); RBC Distribution Width SD 41.7 fl (35.1-43.9); Red Blood Count 4.04 M/mm3 (4.2-5.4); White Blood Count 6.7 K/mm3 (4.4-11.0)
[2018-09-14 17:03] LABS: Glucose Challenge Gest 1H 50g 112 mg/dL (70-140)
== END ==
PROVIDERS: Referring Provider Nurse Practitioner Women's Health; Visit Provider Nurse Practitioner Women's Health
DX: Z34.90 Encounter for supervision of normal pregnancy, unspecified, unspecified trimester (principal)
CPT/HCPCS: 36415; 82950; 85025; 86850; 86900

== ENCOUNTER → 2018-10-17 13:53 | Outpatient (CLI) | payer SELFPAY ==
[2018-09-29 16:42] VITALS: BMI 34.0
--- NOTE | 2018-10-17 13:55 | US_ITS ---
STUDY: OBSTETRICAL ULTRASOUND - BIOPHYSICAL PROFILE REASON FOR EXAM: Female, 27 years old. Assess well-being. growth. LMP: 03/03/2018 PRIOR ULTRASOUND: None. TECHNIQUE: Transabdominal ultrasound evaluation was performed. FINDINGS: Single live intrauterine gestation. Cephalic presentation. cardiac rate 156 bpm. Amniotic fluid index 13.3 cm. Maximum vertical pocket 3.1 cm. Placenta grade 1, anterior, not low-lying. Cervical length 4.6 cm, closed. The maternal adnexa are not characterized. Biometrics: Biparietal diameter 8.2 cm, 33 week 1 day Head circumference 31.1 cm, 34 week 6 day Abdominal circumference 29.8 cm, 32 weeks 6 day Femur length 6.6 cm, 33 weeks 6 day Cephalic index 78%. Femur length/abdominal circumference 23%. Femur length/biparietal diameter 80%. Head circumference/abdominal circumference 1.08. Age by LMP: 32 weeks, 4 days. ELSY by LMP: 12/08/2018. age by current US: 33 weeks, 5 days. ELSY by current US: 11/30/2018. Estimated weight 2164 g, +/- 316 g, 64% Limited anatomic images were obtained for assessment of dates, viability and positioning only. In the limited survey no gross anatomic abnormality was observed. BIOPHYSICAL PROFILE: Breathing Movements (FBM): 2 Gross Body Movements (GBM): 2 Tone (FT): 2 Amniotic Fluid Volume (AFV): 2 TOTAL SCORE: US/Biophysical Profile IMPRESSION: Normal biophysical profile of 02/09. Biometrics as above. No acute or maternal abnormality is evident. Electronically Signed: Edmund Barrett MD at 15:51 EDT Tel , Service support ,
--- NOTE | 2018-10-17 13:55 | US_ITS ---
STUDY: SECOND AND THIRD TRIMESTER OBSTETRICAL ULTRASOUND - LIMITED REASON FOR EXAM: Female, 27 years old. Assess well-being. growth. LMP: 03/03/2018 PRIOR ULTRASOUND: None. TECHNIQUE: Transabdominal ultrasound evaluation was performed. FINDINGS: Single live intrauterine gestation. Cephalic presentation. cardiac rate 156 bpm. Amniotic fluid index 13.3 cm. Maximum vertical pocket 3.1 cm. Placenta grade 1, anterior, not low-lying. Cervical length 4.6 cm, closed. The maternal adnexa are not characterized. Biometrics: Biparietal diameter 8.2 cm, 33 week 1 day Head circumference 31.1 cm, 34 week 6 day Abdominal circumference 29.8 cm, 32 weeks 6 day Femur length 6.6 cm, 33 weeks 6 day Cephalic index 78%. Femur length/abdominal circumference 23%. Femur length/biparietal diameter 80%. Head circumference/abdominal circumference 1.08. Age by LMP: 32 weeks, 4 days. ELSY by LMP: 12/08/2018. age by current US: 33 weeks, 5 days. ELSY by current US: 11/30/2018. Estimated weight 2164 g, +/- 316 g, 64% Limited anatomic images were obtained for assessment of dates, viability and positioning only. In the limited survey no gross anatomic abnormality was observed. BIOPHYSICAL PROFILE: Breathing Movements (FBM): 2 Gross Body Movements (GBM): 2 Tone (FT): 2 Amniotic Fluid Volume (AFV): 2 TOTAL SCORE: US/OB Limited With Biometrics IMPRESSION: Normal biophysical profile of 02/09. Biometrics as above. No acute or maternal abnormality is evident. Electronically Signed: Edmund Barrett MD at 15:52 EDT Tel , Service support ,
== END ==
PROVIDERS: Referring Provider Obstetrics & Gynecology; Visit Provider Obstetrics & Gynecology
DX: O16.9 Unspecified maternal hypertension, unspecified trimester (principal); Z3A.00 Weeks of gestation of pregnancy not specified
CPT/HCPCS: 76816; 76818

== ENCOUNTER → 2018-10-26 09:41 | Outpatient (CLI) | payer SELFPAY ==
[2018-09-29 16:42] VITALS: BMI 34.0
[2018-10-21 14:57] VITALS: BMI 34.6
--- NOTE | 2018-10-26 09:50 | US_ITS ---
STUDY: OBSTETRICAL ULTRASOUND - BIOPHYSICAL PROFILE REASON FOR EXAM: Female, 27 years old. well-being. PRIOR ULTRASOUND: 10/17/2018 TECHNIQUE: Transabdominal ultrasound evaluation was performed. FINDINGS: There is a single intrauterine fetus. The fetus is in a cephalic presentation. There is demonstrated cardiac activity with a heart rate of 165 bpm. There is a normal amniotic fluid volume. The amniotic fluid index (LEONEL) is 13.7 cm. The placenta is anterior in location and is not low lying. The cervix measures 4.7 cm. BIOPHYSICAL PROFILE: Breathing Movements (FBM): 2 Gross Body Movements (GBM): 2 Tone (FT): 2 Amniotic Fluid Volume (AFV): 2 TOTAL SCORE: 8 / 8 US/Biophysical Profile IMPRESSION: Normal biophysical profile of 02/09. Electronically Signed: Rosas Lopez, at 11:54 EDT Tel , Service support ,
== END ==
PROVIDERS: Referring Provider Obstetrics & Gynecology; Visit Provider Obstetrics & Gynecology
DX: O16.9 Unspecified maternal hypertension, unspecified trimester (principal); Z3A.00 Weeks of gestation of pregnancy not specified
CPT/HCPCS: 76818

== ENCOUNTER → 2018-10-31 09:39 | Outpatient (CLI) | payer SELFPAY ==
[2018-09-29 16:42] VITALS: BMI 34.0
[2018-10-26 11:24] VITALS: BMI 34.6
--- NOTE | 2018-10-31 09:42 | US_ITS ---
STUDY: SECOND AND THIRD TRIMESTER OBSTETRICAL ULTRASOUND - LIMITED REASON FOR EXAM: Female, 27 years old. growth. Follow-up. PRIOR ULTRASOUND: 10/26/2018 and 10/17/2018. TECHNIQUE: Transabdominal ultrasound evaluation was performed. FINDINGS: There is a single intrauterine fetus. The fetus is in a cephalic presentation. There is demonstrated cardiac activity with a heart rate of 170 bpm. There is a normal amniotic fluid volume. The largest amniotic fluid pocket measures 3.8 cm. The amniotic fluid index (LEONEL) is 14.9 cm. The placenta is anterior in location and is not low lying. There are Grade 2 placental changes. The cervix measures 3.5 cm in length. BIOMETRY: BPD: 8.6 cm: 34 weeks, 5 days HC: 31.7 cm: 35 weeks, 5 days AC: 30.4 cm: 34 weeks, 3 days FL: 6.7 cm: 34 weeks, 5 days Age by LMP: 34 weeks, 4 days. ELSY by LMP: 12/08/2018. age by prior US: 35 weeks, 5 days. ELSY by prior US: 11/30/2018. age by current US: 35 weeks, 0 days. ELSY by current US: 12/05/2018. Estimated weight: 2464 grams, +/- 360 grams, 45 percentile. US/OB Limited With Biometrics IMPRESSION: Single live intrauterine gestation at approximately 35 weeks and 0 days based on the current ultrasound. Electronically Signed: Rosas Jessica, at 18:51 EDT Tel , Service support ,
--- NOTE | 2018-10-31 09:49 | US_ITS ---
STUDY: OBSTETRICAL ULTRASOUND - BIOPHYSICAL PROFILE REASON FOR EXAM: Female, 27 years old. well-being PRIOR ULTRASOUND: 10/26/2018 and 10/17/2018 TECHNIQUE: Transabdominal ultrasound evaluation was performed. FINDINGS: There is a single intrauterine fetus. The fetus is in a cephalic presentation. There is demonstrated cardiac activity with a heart rate of 170 bpm. There is a normal amniotic fluid volume. The amniotic fluid index (LEONEL) is 14.9 cm. The placenta is anterior in location and is not low lying. BIOPHYSICAL PROFILE: Breathing Movements (FBM): 2 Gross Body Movements (GBM): 2 Tone (FT): 2 Amniotic Fluid Volume (AFV): 2 TOTAL SCORE: 8 / 8 US/Biophysical Prof W/O Non Stres IMPRESSION: Normal biophysical profile of 02/09. Electronically Signed: Rosas Lopez, at 18:53 EDT Tel , Service support ,
[2018-10-31 12:05] LABS: Absolute Lymphocyte Count 1.48 X10^3/ul (0.83-4.51); Basophil# 0.01 X10^3/uL; Basophil% 0.1 % (0-1); Eosinophil# 0.03 X10^3/uL; Eosinophils% 0.4 % (0-5); Hematocrit 35.5 % (37-47); Hemoglobin 11.7 g/dl (12.0-15.0); Lymphocyte # 1.48 X10^3/ul (4.0); Lymphocyte % 17.6 % (19-41); Mean Corpuscular Hgb 28.3 pg (27.0-32.0); Mean Corpuscular Volume 85.7 fL (81-99); Mean Platelet Vol. 9.7 fl (6.2-12.0); Monocyte# 0.75 X10^3/uL; Monocyte% 8.9 % (0-10); Neutrophil % 71.6 % (47-70); Platelet Count 199 K/mm3 (150-450); RBC Distribution Width CV 13.2 % (11.6-14.6); RBC Distribution Width SD 40.5 fl (35.1-43.9); Red Blood Count 4.14 M/mm3 (4.2-5.4); White Blood Count 8.4 K/mm3 (4.4-11.0)
[2018-10-31 12:06] LABS: POSITIVE COUNT NO; POSITIVE DIFFERENTIAL NO; POSITIVE MORPHOLOGY NO
[2018-10-31 12:26] LABS: Protein, Urine (Random) < 6.0 mg/dL (<11.9)
[2018-10-31 12:37] LABS: ALB/GLOB Ratio 0.6 RATIO (0.9-2.4); AST(SGOT) 13 U/L (15-37); Alanine Aminotransfer ALT/SGPT 18 U/L (13-56); Albumin, Serum 2.9 g/dL (3.2-5.0); Alkaline Phosphatase 76 U/L (45-117); Anion Gap 6 (5-15); BUN 8 mg/dL (7-18); BUN/Creat Ratio 15.2 RATIO (10-20); Chloride 107 mmol/L (98-107); Creatinine, Serum 0.53 mg/dL (0.55-1.02); EST Glomerular Filtration Rate 149 mL/min (>60); Est Glom Filt Rate - Afr Amer 181 mL/min (>60); Globulin 4.5 g/dL (2.2-4.2); Glucose 84 mg/dL (74-106); Potassium 3.9 mmol/L (3.5-5.1); Protein, Total 7.4 g/dL (6.4-8.2); Sodium Level 138 mmol/L (136-145)
== END ==
PROVIDERS: Nurse Practitioner Women's Health; Referring Provider Obstetrics & Gynecology; Visit Provider Obstetrics & Gynecology
DX: O16.9 Unspecified maternal hypertension, unspecified trimester (principal); Z3A.00 Weeks of gestation of pregnancy not specified
CPT/HCPCS: 36415; 76816; 76819; 80053; 82570; 84156; 85025

== ENCOUNTER → 2018-11-07 10:02 | Outpatient (CLI) | payer SELFPAY ==
[2018-09-29 16:42] VITALS: BMI 34.0
[2018-10-31 11:21] VITALS: BMI 34.6
--- NOTE | 2018-11-07 10:21 | US_ITS ---
STUDY: OBSTETRICAL ULTRASOUND - BIOPHYSICAL PROFILE REASON FOR EXAM: Female, 27 years old. well-being. LMP: March 03, 2018. PRIOR ULTRASOUND: Limited OB ultrasound and biophysical profile October 31, 2018 TECHNIQUE: Transabdominal TECHNICAL QUALITY: Adequate. FINDINGS: There is a single intrauterine fetus. The fetus is in a cephalic presentation. There is demonstrated cardiac activity with a heart rate of 135 bpm. There is a normal amniotic fluid volume. The largest amniotic fluid pocket measures 4.4 x 4.6 cm. The amniotic fluid index (LEONEL) is 11.6 cm. The placenta is anterior in location and is not low lying. There are Grade 2 placental changes. The cervix is closed. Cervical length is 3.7 cm. Age by LMP: 35 weeks, 4 days. ELSY by LMP: December 08, 2018. age by prior US: 36 weeks, 0 days. ELSY by prior US: December 05, 2018. BIOPHYSICAL PROFILE: Breathing Movements (FBM): 2 Gross Body Movements (GBM): 2 Tone (FT): 2 Amniotic Fluid Volume (AFV): 2 TOTAL SCORE: 8 / 8 US/Biophysical Profile IMPRESSION: Normal biophysical profile of 8/8. Electronically Signed: Jamari Hart MD at 16:15 EDT , Service support ,
== END ==
PROVIDERS: Referring Provider Obstetrics & Gynecology; Visit Provider Obstetrics & Gynecology
DX: O16.9 Unspecified maternal hypertension, unspecified trimester (principal); Z3A.00 Weeks of gestation of pregnancy not specified
CPT/HCPCS: 76818

== ENCOUNTER 2018-11-07 11:40 | Outpatient (CLI) | payer SELFPAY ==
[2018-11-07 11:03] VITALS: BMI 34.6
[2018-11-07 11:58] VITALS: BMI 34.8
--- NOTE | 2018-11-08 03:38 | OB.TRI.PN_ITS ---
Progress Notes Date of Service: 11/07/18 Progress Note: Patient seen secondary to tachycardia in the office, heart rate tracing at a baseline of 180s in the office today. She had a normal growth ultrasound and 8 out of 8 BPP today also heart tones 150s moderate variability reactive no decelerations category 1 tracing [place]: No regular contractions Assessment and plan tachycardia resolved with extended monitoring and fluids, suspect excessive movements. Blood pressures stable DC home kick counts
== END 2018-11-07 13:25 | disposition home or self-care (01) ==
LOC: WPOUT 11:50 → WP 11:50
PROVIDERS: Referring Provider Obstetrics & Gynecology; Visit Provider Obstetrics & Gynecology
DX: O76 Abnormality in fetal heart rate and rhythm complicating labor and delivery (principal); Z3A.00 Weeks of gestation of pregnancy not specified
CPT/HCPCS: 59025; 59050; 99218; G0378

== ENCOUNTER → 2018-11-14 10:09 | Outpatient (CLI) | payer SELFPAY ==
[2018-09-29 16:42] VITALS: BMI 34.0
[2018-11-07 11:58] VITALS: BMI 34.8
--- NOTE | 2018-11-14 10:14 | US_ITS ---
STUDY: SECOND AND THIRD TRIMESTER OBSTETRICAL ULTRASOUND - LIMITED REASON FOR EXAM: Female, 28 years old. Routine survey. LMP: March 03, 2018. PRIOR ULTRASOUND: Comparison is made with prior examination dated November 07, 2018 and October 31, 2018. TECHNIQUE: Transabdominal TECHNICAL QUALITY: Adequate. FINDINGS: There is a single intrauterine fetus. The fetus is in a cephalic presentation. There is demonstrated cardiac activity with a heart rate of 172 bpm. There is a normal amniotic fluid volume. The largest amniotic fluid pocket measures 3.2 cm x 2.9 cm. The amniotic fluid index (LEONEL) is 9.8 cm. The placenta is anterior in location and is not low lying. There are Grade 3 placental changes. The cervix measures 2.3 cm in length. BIOMETRY: BPD: 9.3 cm: 37 weeks, 6 days HC: 33.3 cm: 38 weeks, 0 days AC: 34.1 cm: 38 weeks, 0 days FL: 7.3 cm: 37 weeks, 2 days Age by LMP: 36 weeks, 4 days. ELSY by LMP: December 08, 2018. age by prior US: 37 weeks, 5 days. ELSY by prior US: November 30, 2018. age by current US: 37 weeks, 6 days. ELSY by current US: November 29, 2018. Estimated weight: 3306 grams, +/- 483 grams, 84 percentile. US/OB Limited With Biometrics IMPRESSION: Single live intrauterine gestation with a mean gestational age of 37 weeks and 5 days. The measurements obtained today fall within the normal expected range. Electronically Signed: Scottie Ventura, at 15:31 EDT , Service support ,
--- NOTE | 2018-11-14 10:24 | US_ITS ---
STUDY: OBSTETRICAL ULTRASOUND - BIOPHYSICAL PROFILE REASON FOR EXAM: Female, 28 years old. well being. History of hypertension. LMP: March 03, 2018. PRIOR ULTRASOUND: Comparison is made with prior study dated November 07, 2018. TECHNIQUE: Transabdominal TECHNICAL QUALITY: Adequate. FINDINGS: There is a single intrauterine fetus. The fetus is in a cephalic presentation. There is demonstrated cardiac activity with a heart rate of 176 bpm. There is a normal amniotic fluid volume. The largest amniotic fluid pocket measures 5.3 cm x 3.1 cm. The amniotic fluid index (LEONEL) is 9.9 cm. The placenta is anterior in location and is not low lying. There are Grade 3 placental changes. The cervix measures 3.4 cm. Age by LMP: 36 weeks, 4 days. ELSY by LMP: December 08, 2018. age by prior US: 37 weeks, 6 days. ELSY by prior US: November 29, 2018. BIOPHYSICAL PROFILE: Breathing Movements (FBM): 2 Gross Body Movements (GBM): 2 Tone (FT): 2 Amniotic Fluid Volume (AFV): 2 TOTAL SCORE: 8 / 8 US/Biophysical Profile IMPRESSION: Normal biophysical profile of 8/8. Electronically Signed: Scottie Ventura, at 14:41 EDT , Service support ,
== END ==
PROVIDERS: Referring Provider Obstetrics & Gynecology; Visit Provider Obstetrics & Gynecology
DX: O16.3 Unspecified maternal hypertension, third trimester (principal); Z3A.36 36 weeks gestation of pregnancy
CPT/HCPCS: 76816; 76818; 87081

== ENCOUNTER 2018-11-24 09:30 | Inpatient (IN) | payer SELFPAY ==
[2018-09-29 16:42] VITALS: BMI 34.0
[2018-11-17 16:01] VITALS: BMI 35.4
[2018-11-24] VITALS (31 sets, daily range): BP systolic 105–131; BP diastolic 53–87; PULSE 86–112; RESP 14–20; TEMP 36.1–36.7; O2SAT 87–100; BMI 35.5
[2018-11-24] MEDS: Lactated Ringers 1,000 ML 999 ML IV (09:50)
--- NOTE | 2018-11-24 10:02 | HP.PCM_ITS ---
- Problem List (1) Hypertension affecting Status: Acute Qualifiers: Trimester: third trimester Qualified Code(s): O16.3 - Unspecified maternal hypertension, third trimester Comment: check home bps, labs sent. reviewed precautions; NST/BPP weekly([facility]) at 32 wks (2) UTI in Status: Acute Qualifiers: Trimester: third trimester Qualified Code(s): O23.43 - Unspecified infection of urinary tract in , third trimester Comment: repeat culture neg (3) Rubella non-immune status, antepartum Status: Acute Comment: discussed rubella avoidance nd immunization (4) History of hemorrhage Status: Acute Comment: uterine inversion (5) Status: Acute Qualifiers: Weeks of gestation: 36 weeks Qualified Code(s): Z3A.36 - 36 weeks gestation of Comment: genetic, carrier, and ntd screening declined. MFM Anatomy US normal. (6) Previous delivery affecting , antepartum Status: Acute Comment: considering - 55-70% likelihood of success, education given (7) Supervision of normal , antepartum Status: Acute Qualifiers: Normal : other normal Qualified Code(s): Z34.80 - Encounter for supervision of other normal , unspecified trimester Comment: PRR ELSY 12/08/18 mami Barrios Aaron (8) Anxiety Status: Acute Comment: fluvoxamine History Date of Admission: 11/24/18 Final ELSY: 12/08/18 Gestational age: 38 Weeks and 0 Days History of this : This is a 28 year-old, at 38 weeks gestational age presents for repeat low transverse . She has had a history of chronic hypertension well controlled and previous declining . Medical History: Medical History (Last Reviewed 11/17/18 @ 15:37 by India Prince) Anxiety (Acute) F41.9 fluvoxamine Surgical History: Surgical History (Last Reviewed 11/17/18 @ 15:37 by India Prince) S/P Z98.891 Allergies No Known Allergies Allergy (Verified 11/17/18 15:36) Home Medications: Home Medications fluvoxamine 100 mg tablet 100 mg PO QHS 11/11/17 vitamin #56-iron 35 mg and 5 mg-folic acid 1 mg-dha capsule 1 cap PO DAILY 05/02/18 Blood Pressure Test Kit [Blood Pressure Monitor Manual] 0 .ROUTE .MEDSUPPLY 11/07/18 Smoking Status: Never smoker Number of Fetus(es): 1 Heart Tracin History Past Pregnancies: Past Pregnancies Previous term section failure to progress uterine inversion with hemorrhage Expected Delivery Method: Scheduled Section Review of Systems Constitutional: Denies: Fever, Malaise Eyes: Denies: Blurred vision, Vision Change HEENT: Denies: Head Aches, Visual Changes Cardiovascular: Denies: Chest Pain, Palpitations Respiratory: Denies: Cough, Shortness of Breath, Wheezing Gastrointestinal: Denies: Abdominal Pain, Diarrhea, Nausea, Vomiting Genitourinary: Denies: Dysuria, Hematuria Musculoskeletal: Denies: Joint Pain, Muscle pain Skin: Denies: Lesions, Rash Neurological: Denies: Blurred vision, Focal weakness, Headaches Psychiatric: Denies: Anxiety, Depression Endocrine: Denies: Heat/ Cold Intolerance Hematologic/ Lymphatic: Denies: Easy Bruising, Easy Bleeding Physical Exam General: Alert, Cooperative, No apparent distress HEENT: Atraumatic, Normocephalic. Negative for: Thyromegaly, Lymphadenopathy Cardiovascular: Regular rate Lungs: Normal air movement Abdomen: Soft, Non Tender, Gravid Neurological: Deep Tendon Reflexes 2+/4 and Symmetrical, Neuro grossly intact. 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 Negative for: Vulvar lesions Estimated gestational size: Appropriate for gestational size Presentation: Cephalic Assessment/Plan All Active Problems (Last Reviewed 11/17/18 @ 15:37 by India Prince) Hypertension affecting (Acute) UTI in (Acute) Rubella non-immune status, antepartum (Acute) History of hemorrhage (Acute) (Acute) Previous delivery affecting , antepartum (Acute) Supervision of normal , antepartum (Acute) Anxiety (Acute) This is a 28 year-old, G 2P1 at 38 weeks gestational age presents for repeat low transverse secondary to chronic hypertension Chronic hypertension?continue medications uncomplicated Previous declines trial of labor plan repeat low transverse Previous hemorrhage and uterine inversion
[2018-11-24 10:10] LABS: Absolute Lymphocyte Count 1.93 X10^3/ul (0.83-4.51); Absolute Neutrophil Count 4.9 X10^3/uL (2.0-7.7); Basophil# 0.01 X10^3/uL; Basophil% 0.1 % (0-1); Eosinophil# 0.06 X10^3/uL; Eosinophils% 0.8 % (0-5); Hematocrit 32.8 % (37-47); Lymphocyte # 1.93 X10^3/ul (4.0); Lymphocyte % 25.2 % (19-41); Mean Corp Hgb Conc 33.5 g/gl (32-36); Mean Corpuscular Hgb 28.4 pg (27.0-32.0); Mean Corpuscular Volume 84.5 fL (81-99); Mean Platelet Vol. 9.9 fl (6.2-12.0); Monocyte# 0.73 X10^3/uL; Monocyte% 9.5 % (0-10); Neutrophil # 4.88 X10^3/uL (2.7-7.7); Neutrophil % 63.6 % (47-70); POSITIVE COUNT NO; POSITIVE DIFFERENTIAL NO; POSITIVE MORPHOLOGY NO; Platelet Count 203 K/mm3 (150-450); RBC Distribution Width CV 13.5 % (11.6-14.6); RBC Distribution Width SD 40.8 fl (35.1-43.9); Red Blood Count 3.88 M/mm3 (4.2-5.4); White Blood Count 7.7 K/mm3 (4.4-11.0)
[2018-11-24] MEDS: Lactated Ringers 1,000 ML 150 ML IV (11:05)
[2018-11-24] MEDS: Cefazolin 2 GM in 0.9% Normal Saline 100 ML IV (11:21)
[2018-11-24] MEDS: Sodium Citrate/Citric Acid 30 ML UDC PO (11:22)
[2018-11-24] MEDS: Oxytocin 30 units/NS 500 ml 30 UNITS/500 ML IV.SOLN 167 UNITS IV ×2 (13:15)
[2018-11-24] MEDS: Carboprost Tromethamine 250 MCG/ML Ampul IM (13:17)
--- NOTE | 2018-11-24 17:10 | NURSING ---
Pt encouraged to take deep breaths. pulse ox 87-92% o2 applied at [address] via nasal cannula. Dr Prado aware. new orders received
[2018-11-24 17:13] LABS: Hematocrit 29.4 % (37-47); Hemoglobin 9.7 g/dl (12.0-15.0); Mean Corpuscular Hgb 27.9 pg (27.0-32.0); Mean Corpuscular Volume 84.5 fL (81-99); Mean Platelet Vol. 9.7 fl (6.2-12.0); Platelet Count 189 K/mm3 (150-450); RBC Distribution Width CV 13.1 % (11.6-14.6); Red Blood Count 3.48 M/mm3 (4.2-5.4); White Blood Count 13.5 K/mm3 (4.4-11.0)
[2018-11-24 17:14] LABS: Scan Indicated on CBC? Y/N NO
[2018-11-24] MEDS: Lactated Ringers 1,000 ML 100 ML IV ×2 (17:31→18:01)
[2018-11-24] MEDS: Ketorolac 30 MG/ML Syringe IV ×2 (17:59→23:49)
--- NOTE | 2018-11-24 20:13 | PCM.OPRPT ---
Problem List (1) Hypertension affecting Status: Acute Qualifiers: Trimester: third trimester Qualified Code(s): O16.3 - Unspecified maternal hypertension, third trimester Comment: check home bps, labs sent. reviewed precautions; NST/BPP weekly([facility]) at 32 wks (2) UTI in Status: Acute Qualifiers: Trimester: third trimester Qualified Code(s): O23.43 - Unspecified infection of urinary tract in , third trimester Comment: repeat culture neg (3) Rubella non-immune status, antepartum Status: Acute Comment: discussed rubella avoidance nd immunization (4) History of hemorrhage Status: Acute Comment: uterine inversion (5) Status: Acute Qualifiers: Weeks of gestation: 36 weeks Qualified Code(s): Z3A.36 - 36 weeks gestation of Comment: genetic, carrier, and ntd screening declined. MFM Anatomy US normal. (6) Previous delivery affecting , antepartum Status: Acute Comment: considering - 55-70% likelihood of success, education given (7) Supervision of normal , antepartum Status: Acute Qualifiers: Normal : other normal Qualified Code(s): Z34.80 - Encounter for supervision of other normal , unspecified trimester Comment: PRR ELSY 12/08/18 mami Barrios Aaron (8) Anxiety Status: Acute Comment: fluvoxamine Delivery Classification: Scheduled Final ELSY: 12/08/18 Gestational age: 38 Weeks and 0 Days Indications for : Repeat Elective Description of Procedure: The patient is a 8-year-old G2, P1 at 38 weeks with chronic hypertension presented for repeat . Spinal anesthesia was placed without difficulty. Farmer catheter was placed. The patient was placed in the dorsal supine position with leftward tilt. Patient was prepped and draped in the normal sterile fashion. Pfannenstiel skin incision was made with the scalpel and carried through to the underlying layer of fascia with the scalpel. Fascia was nicked in the midline and the incision extended laterally. The rectus bellies were dissected off superiorly and inferiorly with out complication both sharply and bluntly. The peritoneum was entered digitally. The incision was stretched and a low transverse uterine incision was made with the scalpel. The infant's head was delivered atraumatically followed by the anterior and posterior shoulders without complication the rest of the infant delivered. The cord was clamped and cut and the was handed off to awaiting nurse. The placenta was delivered spontaneously immediately following and was noted to be intact and have a three-vessel cord. The uterus was exteriorized cleared of all clots and debris, and the incision was closed in a double layer closure using #1 Monocryl. The uterus was returned to the maternal abdomen and gutters were cleared of all clots and debris. The ovaries and fallopian tubes were noted to be within normal limits. The peritoneum was closed with 3-0 Monocryl in a running fashion. Fascia was closed with 0 PDS in a running fashion. Subcutaneous tissue was copiously irrigated and the skin was closed with 3-0 Monocryl in a subcuticular fashion. Steri-Strips and Mepilex dressing were applied without complication. Patient was taken to recovery in stable condition. Amniotic Membrane Rupture Type: Artificial Amniotic Fluid Description: Clear Placenta Disposition: [facility] Fluids Replaced: crystalloid Cord Entanglement: None Cord Vessel Description: 3 Vessels Esitmated Blood Loss (ml): 900 Infant Gender: Male Delayed cord clamping: Yes Pre-op Antibiotic Given: Ancef 2 grams IV x1 Complications: None - Admit VTE Documentation VTE Present on Admission: No VTE Mechan Device Prophylaxis: SCD's
--- NOTE | 2018-11-24 23:30 | NURSING ---
Unsure of exact insertion time on 11/24/18; however, Farmer intact and draining clear yellow urine without difficulty.
[2018-11-25] VITALS (9 sets, daily range): BP systolic 98–136; BP diastolic 60–90; PULSE 89–108; RESP 16–18; TEMP 36.3–36.6; O2SAT 95–99
[2018-11-25] MEDS: Lactated Ringers 1,000 ML 100 ML IV (05:20)
[2018-11-25] MEDS: Ketorolac 30 MG/ML Syringe IV ×4 (05:21→23:55)
[2018-11-25 05:53] LABS: Hematocrit 22.9 % (37-47); Hemoglobin 7.4 g/dl (12.0-15.0); Mean Corp Hgb Conc 32.3 g/gl (32-36); Mean Corpuscular Hgb 27.9 pg (27.0-32.0); Mean Corpuscular Volume 86.4 fL (81-99); Mean Platelet Vol. 9.8 fl (6.2-12.0); Platelet Count 167 K/mm3 (150-450); RBC Distribution Width SD 38.8 fl (35.1-43.9); Red Blood Count 2.65 M/mm3 (4.2-5.4); White Blood Count 8.7 K/mm3 (4.4-11.0)
[2018-11-25 05:54] LABS: Scan Indicated on CBC? Y/N NO
--- NOTE | 2018-11-25 08:10 | PCM.PN.OB ---
Subjective: doing well no complaints pain controlled no CP SOB/on O2 per NC for decreased pulse ox after pain med. 97% now. No N V. tolerating po lochia moderate, going well - Physical Exam General: Alert, Oriented x3 Abdomen: Soft, Non-Distended, - - FF below U. Dressing dry and intact Vital Signs Temp Pulse Resp BP Pulse Ox 97.7 F L 89 18 98/60 95 11/25/18 04:39 11/25/18 06:15 11/25/18 06:15 11/25/18 04:39 11/25/18 06:15 Oxygen Flow Rate (L/min) 2 Oxygen Delivery Method Nasal Cannula Weight: 227 lb Body Mass Index (BMI) 35.5 Intake and Output for Last 24 Hours 11/23/18 11/24/18 11/25/18 23:59 23:59 23:59 Intake Total 3163 / 3163 728 / 728 Output Total 1820 / 1820 1100 / 1100 Balance 1343 / 1343 -372 / -372 Laboratory Tests Past 24 Hrs 11/24/18 11/24/18 11/24/18 09:50 09:50 17:00 WBC 7.7 13.5 H RBC 3.88 L 3.48 L Hgb 11.0 L 9.7 L Hct 32.8 L 29.4 L MCV 84.5 84.5 MCH 28.4 27.9 MCHC 33.5 33.0 RDW 13.5 13.1 RDW Differential 40.8 39.0 Plt Count 203 189 MPV 9.9 9.7 Immature Gran % (Auto) 0.800 Neut % (Auto) 63.6 Lymph % (Auto) 25.2 [place] % (Auto) 9.5 Eos % (Auto) 0.8 Baso % (Auto) 0.1 Absolute Neuts (auto) 4.9 Absolute Lymphs (auto) 1.93 Total Counted Not Reportable Blood Type A POSITIVE Antibody Screen NEGATIVE 11/25/18 05:30 WBC 8.7 RBC 2.65 L Hgb 7.4 L Hct 22.9 L MCV 86.4 MCH 27.9 MCHC 32.3 RDW 13.0 RDW Differential 38.8 Plt Count 167 MPV 9.8 Immature Gran % (Auto) Neut % (Auto) Lymph % (Auto) Screven % (Auto) Eos % (Auto) Baso % (Auto) Absolute Neuts (auto) Absolute Lymphs (auto) Total Counted Blood Type Antibody Screen Medical Necessity - Tobacco Use Smoking Status: Never smoker Assessment/Plan All Active Problems (Last Reviewed 11/17/18 @ 15:37 by India Prince) Hypertension affecting (Acute) UTI in (Acute) Rubella non-immune status, antepartum (Acute) History of hemorrhage (Acute) (Acute) Previous delivery affecting , antepartum (Acute) Supervision of normal , antepartum (Acute) Anxiety (Acute) s/p LTCS PPD # 1 1. routine post care 2. breast feeding- support given 3. rh positive 4. rubella nonimmune 5. May DC O2 and monitor pulse ox-patient aware to report SOB, CP
--- NOTE | 2018-11-25 08:26 | NURSING ---
Mild swelling noted to labia majora. Farmer catheter patent and draining.
[2018-11-25] MEDS: Senna/Docusate Sodium 1 Tablet PO (11:01)
[2018-11-25] MEDS: 0.9% Saline Lock 10 ML Syringe IV ×3 (12:02→23:55)
--- NOTE | 2018-11-25 13:58 | NURSING ---
Mild swelling noted to labia majora. Unchanged from previous assessment. Ice pack offered for comfort. Patient declined.
--- NOTE | 2018-11-25 16:50 | NURSING ---
Patient also had additional urine in the toilet that missed the hat.
[2018-11-25] MEDS: Ferrous Sulfate 325 MG Tablet PO (18:09)
--- NOTE | 2018-11-25 19:30 | NURSING ---
Discussed equivocal MMR status with pt and previous RN. Pt declines MMR at this time. Risks and education on MMR discussed with pt.
--- NOTE | 2018-11-25 22:00 | NURSING ---
Pt asked if she was able to take natural iron chlorofresh brought from home. Discussed with salmon gillnet vessel operator, discouraged use, iron on sep and given 11/25. Pt agreeable and plans to talk with Dr. Prado in the morning.
[2018-11-26 02:40] VITALS: BP 128/86; PULSE 107; RESP 18; TEMP 36.3
[2018-11-26 04:44] LABS: Hematocrit 24.4 % (37-47); Mean Corp Hgb Conc 32.8 g/gl (32-36); Mean Corpuscular Hgb 28.3 pg (27.0-32.0); Mean Corpuscular Volume 86.2 fL (81-99); Mean Platelet Vol. 9.8 fl (6.2-12.0); Platelet Count 182 K/mm3 (150-450); RBC Distribution Width CV 13.2 % (11.6-14.6); RBC Distribution Width SD 39.8 fl (35.1-43.9); Red Blood Count 2.83 M/mm3 (4.2-5.4); Scan Indicated on CBC? Y/N NO; White Blood Count 8.5 K/mm3 (4.4-11.0)
[2018-11-26] MEDS: 0.9% Saline Lock 10 ML Syringe IV ×2 (06:12→12:20)
[2018-11-26] MEDS: Ketorolac 30 MG/ML Syringe IV ×2 (06:12→12:20)
--- NOTE | 2018-11-26 09:17 | PCM.PN.OB ---
Subjective: doing well no complaints pain controlled no CP SOB N V ambulating well tolerating po lochia moderate, going well - Physical Exam General: Oriented x3 Abdomen: Soft, Non-Distended, - - FF below U. Dressing dry and intact Vital Signs Temp Pulse Resp BP Pulse Ox 97.4 F L 107 H 18 128/86 H 98 11/26/18 02:40 11/26/18 02:40 11/26/18 02:40 11/26/18 02:40 11/25/18 20:30 Oxygen Flow Rate (L/min) 2 Oxygen Delivery Method Room Air Weight: 227 lb Body Mass Index (BMI) 35.5 Intake and Output for Last 24 Hours 11/24/18 11/25/18 11/26/18 23:59 23:59 23:59 Intake Total 3163 / 3163 1767 / 1767 Output Total 1820 / 1820 3200 / 3200 Balance 1343 / 1343 -1433 / -1433 Laboratory Tests Past 24 Hrs 11/26/18 04:36 WBC 8.5 RBC 2.83 L Hgb 8.0 L Hct 24.4 L MCV 86.2 MCH 28.3 MCHC 32.8 RDW 13.2 RDW Differential 39.8 Plt Count 182 MPV 9.8 Medical Necessity - Tobacco Use Smoking Status: Never smoker Assessment/Plan All Active Problems (Last Reviewed 11/17/18 @ 15:37 by India Prince) Hypertension affecting (Acute) UTI in (Acute) Rubella non-immune status, antepartum (Acute) History of hemorrhage (Acute) (Acute) Previous delivery affecting , antepartum (Acute) Supervision of normal , antepartum (Acute) Anxiety (Acute) s/p LTCS PPD # 2 1. routine post care 2. breast feeding- support given 3. rh positive 4. rubella nonimmune 5. home today
--- NOTE | 2018-11-26 09:20 | DCINST_ITS ---
Additional Instructions: If you experience any of the following, contact your healthcare provider. * Bleeding that soaks a pad every hour for 2 hours * Fever 100.4 or higher * Unrelieved incision or abdominal pain * Swelling, redness, discharge or bleeding from your incision or episiotomy site * Your incision begins to separate * Problems urinating (including inability to urinate or burning while urinating). * Visual changes * Severe headache * Flu-like symptoms * Pain or redness in one of both of your breasts * Pain, warmth, tenderness or swelling in your legs, especially the calf area * Frequent nausea and vomiting * Symptoms of depression or anxiety If you experience any of the following, call 911 or go to the nearest Emergency Room. * Chest pain * Problems breathing * Seizure activity * Partial or complete paralysis of a body part, slurred speech, weakness or drooping of the face, or a sudden inability to walk or hold your balance Allergies/Adverse Reactions: Allergies No Known Allergies Allergy (Verified 11/24/18 10:03) Medications to take at Discharge fluvoxamine 100 mg tablet 100 mg PO QHS 11/11/17 vitamin #56-iron 35 mg and 5 mg-folic acid 1 mg-dha capsule 1 cap PO DAILY 05/02/18 Blood Pressure Test Kit [Blood Pressure Monitor Manual] 0 .ROUTE .MEDSUPPLY 11/07/18 Naproxen [Naprosyn] 250 - 500 mg PO Q8H PRN PRN #30 tablet 11/24/18 Oxycodone HCl/Acetaminophen [Percocet 5-325] 1 - 2 tablet PO Q4H PRN PRN 7 Days #28 tablet 11/24/18 The following prescriptions were given: Oxycodone HCl/Acetaminophen [Percocet 5-325] 1 - 2 tablet PO Q4H PRN PRN 7 Days #28 tablet PRN Reason: Moderate-Severe pain Naproxen [Naprosyn] 250 - 500 mg PO Q8H PRN PRN #30 tablet PRN Reason: MILD PAIN Follow-Up: Call to make an appointment with your doctor for an incision check in 1-2 weeks. You will also need a 6 week post- follow up appointment. Test results from this visit will be discussed in further detail at your follow- up appointment, if applicable. Primary Care Physician: Елена Mauro,Out of [Primary Care Provider] -
[2018-11-26 10:00] VITALS: BP 127/79; PULSE 109; RESP 16; TEMP 36.3
[2018-11-26] MEDS: Ferrous Sulfate 325 MG Tablet PO (13:13)
[2018-11-26 14:00] VITALS: BP 134/86; PULSE 102; RESP 16; TEMP 36.2
== END 2018-11-26 14:00 | disposition home or self-care (01) | DRG 787 ==
PROVIDERS: Nurse Practitioner Women's Health; Admitting Provider Obstetrics & Gynecology; Referring Provider Obstetrics & Gynecology; Visit Provider Obstetrics & Gynecology
PROC: 10D00Z1 Extraction of Products of Conception, Low, Open Approach (ICD-10-PCS; CPT 59514; principal; 2018-11-24 10:45)
DX: O34.211 Maternal care for low transverse scar from previous cesarean delivery (principal); O23.43 Unspecified infection of urinary tract in pregnancy, third trimester; O16.4 Unspecified maternal hypertension, complicating childbirth; O99.344 Other mental disorders complicating childbirth; F41.9 Anxiety disorder, unspecified; O99.89 Other specified diseases and conditions complicating pregnancy, childbirth and the puerperium; R06.02 Shortness of breath; T40.2X5A Adverse effect of other opioids, initial encounter; Y92.239 Unspecified place in hospital as the place of occurrence of the external cause; Z78.9 Other specified health status; Z3A.38 38 weeks gestation of pregnancy; Z37.0 Single live birth
CPT/HCPCS: 85025; 85027; 86850; 86900; 99218; J7120; A4216; G0378; J2405

== ENCOUNTER → 2018-12-08 15:52 | Outpatient (CLI) | payer SELFPAY ==
[2018-12-08 15:45] VITALS: BMI 35.5
[2018-12-08 16:25] LABS: Absolute Lymphocyte Count 2.55 X10^3/ul (0.83-4.51); Absolute Neutrophil Count 4.5 X10^3/uL (2.0-7.7); Basophil# 0.03 X10^3/uL; Basophil% 0.4 % (0-1); Eosinophils% 2.5 % (0-5); Hematocrit 33.3 % (37-47); Hemoglobin 10.7 g/dl (12.0-15.0); Lymphocyte # 2.55 X10^3/ul (4.0); Lymphocyte % 32.4 % (19-41); Mean Corp Hgb Conc 32.1 g/gl (32-36); Mean Corpuscular Hgb 27.9 pg (27.0-32.0); Mean Corpuscular Volume 86.7 fL (81-99); Mean Platelet Vol. 9.1 fl (6.2-12.0); Monocyte# 0.58 X10^3/uL; Monocyte% 7.4 % (0-10); Neutrophil # 4.47 X10^3/uL (2.7-7.7); Neutrophil % 56.7 % (47-70); Platelet Count 307 K/mm3 (150-450); RBC Distribution Width CV 14.2 % (11.6-14.6); RBC Distribution Width SD 44.8 fl (35.1-43.9); Red Blood Count 3.84 M/mm3 (4.2-5.4); White Blood Count 7.9 K/mm3 (4.4-11.0)
[2018-12-08 16:26] LABS: POSITIVE COUNT NO; POSITIVE DIFFERENTIAL NO; POSITIVE MORPHOLOGY NO
== END ==
PROVIDERS: Referring Provider Nurse Practitioner Women's Health; Visit Provider Nurse Practitioner Women's Health
DX: O99.019 Anemia complicating pregnancy, unspecified trimester (principal); Z3A.00 Weeks of gestation of pregnancy not specified
CPT/HCPCS: 36415; 85025